=== PATIENT | female | born 2000 | race African-American/Black ===

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

== ENCOUNTER 2019-05-29 21:01 | Emergency (ER) | payer SELFPAY ==
[2019-05-29 21:23] LABS: Bilirubin Negative (Negative); Blood, Urine Negative (Negative); Clarity Clear (Clear); Glucose, Urine (Dipstick) Normal (Negative); Leukocyte Negative Leu/uL (Negative); Nitrite Negative (Negative); Protein, Urine (Dipstick) Negative (Neg-Trace); Urobilinogen Normal mg/dL (Less than 2)
[2019-05-29 21:26] LABS: Pregnancy Test - Urine (BHCG) Negative (Negative); Pregu Control Background? CLEAR/WHITE (CLR/WHITE); Pregu Control Bar Appear? YES (CONTROL BAR); Specific Gravity 1.014 (1.002-1.036)
[2019-06-01 18:57] LABS: Chlamydia by PCR Not Detected (NotDetected); GC by PCR Not Detected (NotDetected)
== END 2019-05-30 01:34 | disposition home or self-care (01) ==
LOC: ERS 21:01
DX: N76.0 Acute vaginitis (principal); B96.89 Other specified bacterial agents as the cause of diseases classified elsewhere
CPT/HCPCS: 81003; 81025; 87480; 87491; 87510; 87591; 87660; 99283

== ENCOUNTER 2019-06-25 19:43 | Emergency (ER) | payer SELFPAY ==
[2019-06-25 21:33] LABS: Pregnancy Test - Urine (BHCG) Negative (Negative); Pregu Control Background? CLEAR/WHITE (CLR/WHITE); Pregu Control Bar Appear? YES (CONTROL BAR)
[2019-06-25] MEDS ORDERED: cefTRIAXone\\ROCEPHIN 1 GM VIAL ONE (23:29)
[2019-06-25] MEDS ORDERED: Amoxicillin/Potassium Clav 250 MG TAB ONE (23:33)
[2019-06-25] MEDS ORDERED: Lidocaine 1% PF 5 ML VIAL ONE (23:33)
[2019-06-25] MEDS ORDERED: Azithromycin 250 MG TAB ONE (23:35)
[2019-06-25] MEDS ORDERED: Amoxicillin/Potassium Clav 875 MG TAB ONE (23:35)
[2019-06-26 18:48] LABS: Chlamydia by PCR Not Detected (NotDetected); GC by PCR Not Detected (NotDetected)
[2019-06-26 18:48] LABS: Chlam.trachomatis by PCR,Urine Not Detected (NotDetected)
== END 2019-06-25 23:50 | disposition home or self-care (01) ==
LOC: ERS 19:43
DX: Z20.2 Contact with and (suspected) exposure to infections with a predominantly sexual mode of transmission (principal)
CPT/HCPCS: 81025; 87480; 87491; 87510; 87591; 87660; 96372; 99283; J0696; J2001

== ENCOUNTER 2019-10-13 21:23 | Emergency (ER) | payer SELFPAY ==
--- NOTE | 2019-10-13 22:35 | RAD ---
EXAM: Chest PA and lateral: HISTORY: Cough COMPARISON: 08/06/2018 FINDINGS: Heart: Normal cardiac silhouette Aorta: Unremarkable Pulmonary vessels: Normal Costophrenic angles: Costophrenic angles are clear. Lungs: No consolidation or masses. Pneumothorax: No pneumothorax Osseous structures: No osseous abnormalities IMPRESSION: No acute cardiopulmonary process.
== END 2019-10-13 23:05 | disposition home or self-care (01) ==
LOC: ERS 21:23
DX: J20.9 Acute bronchitis, unspecified (principal)
CPT/HCPCS: 71046

== ENCOUNTER 2020-03-19 15:38 | Emergency (ER) | payer BC, OTHER | END 2020-03-19 15:57 | disposition home or self-care (01) | LOC: ERS 15:38 | DX: Z20.828 Contact with and (suspected) exposure to other viral communicable diseases (principal) | CPT/HCPCS: 87635; 99283; U0003 ==